=== PATIENT | female | born 1940 | race Asian ===

== ENCOUNTER 2020-07-07 12:31 | Outpatient (CLI) | payer OTHER | END 2020-07-07 21:14 | disposition home or self-care (01) | LOC: MRI 12:31 | PROVIDERS: ATTEND Surgery | DX: T81.89XA Other complications of procedures, not elsewhere classified, initial encounter (principal) | CPT/HCPCS: 36415; 82565; 84520; A9576 ==

== ENCOUNTER 2021-07-12 09:52 | Outpatient (CLI) | payer OTHER | END 2021-07-12 18:53 | disposition home or self-care (01) | LOC: US 09:52 | PROVIDERS: ATTEND Podiatrist | DX: M79.605 Pain in left leg (principal) ==